=== PATIENT | female | born 1980 | race Caucasian/White ===

== ENCOUNTER 2017-12-07 15:24 | Emergency (ER) | END 2017-12-07 17:02 | disposition home or self-care (01) ==

== ENCOUNTER 2018-01-19 23:12 | Emergency (ER) | END 2018-01-20 00:59 | disposition home or self-care (01) ==

== ENCOUNTER 2018-05-04 08:11 | Emergency (ER) | payer OTHER ==
[~2018-05-04] VITALS: Ht 162.6 cm; Wt 82.8 kg
[~2018-05-04 08:11] MED LIST: ALBU18HF INHALATION; ALBU2.5V3 NEB; BECL10.6 IH; CETI10CA PO; DEXA4TAB PO; FLUT9.9S NASAL; GUAI5SYR2 PO; IBUP800T48 PO; PRED20TA PO
[2018-05-04 08:15] VITALS: Ht 162.6 cm; Wt 82.8 kg
[2018-05-04] MEDS ORDERED: ALBUTEROL 0.083% (NEB) 2.5 MG/3 ML AMP NEB STA (08:35)
[2018-05-04] MEDS ORDERED: IPRATROPIUM (NEB) 0.5 MG/2.5 ML AMP NEB STA (08:35)
--- NOTE | 2018-05-04 08:54 | ERD ---
ER Documentation Chief Complaint Chief Complaint asthma no relief with home tx HPI 37-year-old female is here with asthma exacerbation that she has had for about 2 days. She is tried her inhaler at home without any relief. Mild dry cough. No fever. No vomiting. ROS All systems reviewed and are negative except as per history of present illness. Medications Home Meds Active Scripts Dexamethasone* (Dexamethasone*) 4 Mg Tablet, 8 MG PO ONCE for 1 Day, #2 TAB Prov:KRISTI SIGALA NP 01/20/18 Beclomethasone Dipropionate (Qvar Redihaler (40 MCG)) 10.6 Gm Hfa.aeroba, 1 INH IH BID, #1 UNIT Prov:KRISTI SIGALA NP 01/20/18 Albuterol Sulfate* (Ventolin HFA*) 18 Gm Hfa.aer.ad, 2 PUFF INHALATION Q4H, #1 INHALER Prov:KRISTI SIGALA NP 01/20/18 Fluticasone Propionate (Flonase Allergy Relief) 9.9 Ml Bath.susp, 2 SPRAY NASAL DAILY, #1 BOTTLE TO EACH NOSTRIL Prov:SVEN MARINO PA-C 12/07/17 Guaifenesin-Dextromethorphan* (Robitussin* DM) 100MG/10MG/5ML Syrup, 10 ML PO Q6H PRN for COUGH for 5 Days, ML Prov:SVEN MARINO PA-C 12/07/17 Prednisone* (Prednisone*) 20 Mg Tab, 40 MG PO DAILY for 4 Days, TAB Prov:SVEN MARINO PA-C 12/07/17 Cetirizine Hcl* (Zyrtec*) 10 Mg Capsule, 10 MG PO DAILY, #10 TAB.CHEW Prov:SVEN MARINO PA-C 12/07/17 Albuterol Sulfate* (Albuterol Sulfate* Neb) 0.083%-3 Ml Neb, 2.5 MG NEB Q4 PRN for SHORTNESS OF BREATH, #30 EA Prov:SVEN MARINO PA-C 12/07/17 Albuterol Sulfate* (Ventolin HFA*) 18 Gm Hfa.aer.ad, 2 PUFF INHALATION Q6H, #1 INHALER Prov:SVEN MARINO PA-C 12/07/17 Ibuprofen* (Motrin*) 800 Mg Tab, 800 MG PO Q6H PRN for PAIN AND OR ELEVATED TEMP, #30 TAB Prov:YOLANDA MELENDEZ DO 11/05/15 Allergies Allergies: Coded Allergies: No Known Allergy (Unverified , 05/04/18) PMhx/Soc History of Surgery: Yes ( section) Anesthesia Reaction: No Hx Neurological Disorder: No Hx Respiratory Disorders: Yes (ASTHMA) Hx Cardiac Disorders: No Hx Psychiatric Problems: No Hx Miscellaneous Medical Probl: No Hx Alcohol Use: No Hx Substance Use: No Hx Tobacco Use: No Smoking Status: Never smoker FmHx Family History: No diabetes Physical Exam Vitals Vital Signs Date Temp Pulse Resp B/P (MAP) Pulse Ox O2 O2 Flow FiO2 Time Delivery Rate 05/04/18 97.5 108 18 123/76 99 08:15 (92) Physical Exam INITIAL VITAL SIGNS: Reviewed by me GENERAL: Awake, alert and oriented x 4, well appearing, nontoxic, speaking in full sentences. No acute distress HEAD: Atraumatic NECK: Supple. No masses. Full range of motion. No meningismus. No midline tenderness. EYES: EOMI. PERRL. EAR: No tenderness over the mastoids bilaterally. No exudates in the canals. TMs nonerythematous. NOSE: Normal nose. THROAT: No tonilar erythema or edema. No exudates. Uvula midline. No kissing tonsils. RESPIRATORY: Inspiratory wheezing bilaterally, no use of accessory muscles CV: Regular rate and rhythm. No murmurs, rubs, or gallops. Results 24 hrs Current Medications Medications Dose Sig/Liz Start Time Status Last (Trade) Ordered Route PRN Stop Time Admin Dose Reason Admin Albuterol 5 mg ONCE STAT 05/04/18 DC (Proventil NEB 08:35 05/04/18 0.083% (Neb)) 08:36 Ipratropium 0.5 mg ONCE STAT 05/04/18 DC [place] NEB 08:35 05/04/18 (Atrovent 08:36 0.02% (Neb)) 10 mg ONCE ONCE 05/04/18 05/04/18 Dexamethasone PO 09:00 05/04/18 08:44 (Decadron) 09:01 Procedures/MDM Patient is here with asthma exacerbation. She was given Decadron and a breathing treatment with improvement and discharged with albuterol inhaler. Patient counseled regarding my diagnostic impression and care plan. Prior to dis charge all questions answered. Pt agrees with treatment plan and understands strict return precautions. Pt is instructed to follow up with primary care provider within 24-48 hours. Precautionary instructions provided including instructions to return to the ER if not improving or for any worsening or changing symptoms or concerns. Departure Diagnosis: Primary Impression: Acute asthma exacerbation Condition: Stable ASHISH LOUISE PA-C May 04, 2018 08:54
[2018-05-04] MEDS ORDERED: ALBU8.5H8 INH (08:55)
[2018-05-04] MEDS ORDERED: ALBU2.5V3 NEB (08:55)
[2018-05-04] MEDS ORDERED: DEXAMETHASONE 10 MG/ML 1 ML INJ PO ONE (09:00)
[2018-05-04 09:45] VITALS: BP 117/79; PULSE 112; RESP 18
== END 2018-05-04 09:49 | disposition home or self-care (01) ==
LOC: FTE 08:11
DX: J45.901 Unspecified asthma with (acute) exacerbation (principal)
CPT/HCPCS: 94664; J1100; Z7502; Z7610